=== PATIENT | male | born 1995 | race Two or more races ===

== ENCOUNTER 2023-07-02 16:48 | Emergency (ER) | payer MEDICAID ==
[~2023-07-02] VITALS: Ht 180.3 cm; Wt 68.0 kg
[2023-07-02 17:57] VITALS: BP 135/85; TEMP 98.2; O2SAT 99
== END 2023-07-02 17:56 | disposition home or self-care (01) ==
LOC: ER 17:05
DX: S00.81XA Abrasion of other part of head, initial encounter (principal); W22.8XXA Striking against or struck by other objects, initial encounter; Y93.89 Activity, other specified; Y92.89 Other specified places as the place of occurrence of the external cause; Y99.8 Other external cause status